=== PATIENT | female | born 1970 | race Hispanic/Latino ===

== ENCOUNTER 2017-04-17 14:23 | Outpatient (CLI) | payer BC | END 2017-04-17 14:24 | disposition home or self-care (01) | LOC: BICMAMMO 14:23 | PROVIDERS: ATTEND Obstetrics & Gynecology | DX: Z12.31 Encounter for screening mammogram for malignant neoplasm of breast (principal) | CPT/HCPCS: 77063; 77067 ==

== ENCOUNTER 2021-07-07 22:16 | Emergency (ER) | payer BC, OTHER | END 2021-07-07 22:55 | LOC: ERS 22:16 | DX: Z53.21 Procedure and treatment not carried out due to patient leaving prior to being seen by health care provider (principal) ==